=== PATIENT | female | born 1940 | race Hispanic/Latino ===

== ENCOUNTER 2016-05-05 06:28 | Inpatient (IN) | payer MEDICARE ==
[~2016-05-05 06:28] MED LIST: ANCEF/STERILE WATER 2 GM/20 ML IV NR
[2016-05-05] MEDS ORDERED: VERSED IV NR (07:00)
[2016-05-05] MEDS ORDERED: NEURONTIN PO NR (07:00)
[2016-05-05] MEDS ORDERED: PEPCID PO NR (07:00)
[2016-05-05] MEDS ORDERED: NACL 0.9% 1000 ML 1,000 ML IV SCH ×2 (07:00→12:00)
[2016-05-05] MEDS ORDERED: SUBLIMAZE ONE (07:14)
[2016-05-05] MEDS ORDERED: DIPRIVAN 10 MG/ML IV ONE ×3 (07:15→10:22)
[2016-05-05] MEDS ORDERED: ZEMURON IV ONE (07:16)
[2016-05-05] MEDS ORDERED: XYLOCAINE MPF 2% ONE (07:17)
[2016-05-05] MEDS ORDERED: CLONIDINE 1,000 MCG/10 ML VIAL EP ONE (08:00)
[2016-05-05] MEDS ORDERED: MARCAINE-EPI/PF 0.5%-1:200,000 INFILTRATI ONE (08:00)
[2016-05-05] MEDS ORDERED: DECADRON ONE ×2 (08:06→09:45)
[2016-05-05] MEDS ORDERED: ZOFRAN IV PRN ×2 (08:58→11:53)
[2016-05-05] MEDS ORDERED: DILAUDID IV PRN (08:58)
--- NOTE | 2016-05-05 08:58 | Anesthesia Consultation ---
Anesthesia Consult and Med Hx Date of service: 05/05/16 - Airway Anesthetic Teeth Evaluation: Good ROM Head & Neck: Inadequate (s/p ACDF) Mental/Hyoid Distance: Adequate Mallampati Class: Class III Intubation Access Assessment: Possibly Difficult - Pulmonary Exam CTA: Yes - Cardiac Exam Cardiac Exam: RRR - Pre-Operative Health Status ASA Pre-Surgery Classification: ASA3 Proposed Anesthetic Plan: Epidural Nerve Block: Adductor - Pre-Anesthesia Comment Pre-Anesthesia Comments: cardiac w/u in chart. Negative perfusion scan, EF 70%. Cardiac clearance. - Pulmonary Hx Smoking: No Hx Sleep Apnea: No (NICHOLE PRE SCREEN HIGH RISK.) - Cardiovascular System Hx Hypertension: Yes (X 10 YRS) Hx Coronary Artery Disease: Yes Hx Valvular Heart Disease: Yes (MVP) Hx Heart Murmur: Yes - Central Nervous System Hx Back Pain: Yes Hx Psychiatric Problems: Yes - Gastrointestinal Hx Gastroesophageal Reflux Disease: Yes (controlled) - Other Systems Hx Cancer: No - Additional Comments Anesthesia Medical History Comments: NAC
--- NOTE | 2016-05-05 08:58 | Anesthesia Day of Surgery ---
Anesthesia Day of Surgery - Day of Surgery Patient Examined: Yes Patient H&P Reviewed: Yes Patient is NPO: Yes Cardiac Clearance: Yes
[2016-05-05] MEDS ORDERED: TRANEXAMIC ACID IV ONE (09:34)
[2016-05-05] MEDS ORDERED: NACL 0.9% IV ONE (09:34)
[2016-05-05] MEDS ORDERED: NACL 0.9% IR ONE ×2 (09:34→10:00)
[2016-05-05] MEDS ORDERED: ZOFRAN ONE (09:45)
[2016-05-05] MEDS ORDERED: TRANEXAMIC ACID 1,000 MG in NACL 0.9% 100 ML IV NR (10:00)
[2016-05-05] MEDS ORDERED: MARCAINE-EPI 0.5%-1:200,000 INFILTRATI ONE (10:00)
[2016-05-05] MEDS ORDERED: NEOSPORIN GU IR ONE (10:00)
[2016-05-05] MEDS ORDERED: NACL 0.9% 1000 ML 1,000 ML ONE (10:19)
[2016-05-05] MEDS ORDERED: NACL 0.9% 100 ML ONE (11:02)
[2016-05-05] MEDS ORDERED: NEO SYNEPHRINE ONE (11:02)
--- NOTE | 2016-05-05 11:49 | Admit Criteria Form ---
Admission Criteria Documentation: AMBULATORY SURGERY EXCEPTION CRITERIA Ambulatory Surgery Exception Criteria ( Place 'X' for any and all applicable criteria): Surgery or procedure performed on ambulatory basis may require inpatient stay for[A] ANY ONE of the following(1)(2)(3)(4)(5)(6)(7)(8)(9): [X] I. A preoperative situation, condition, or finding that warrants inpatient stay as indicated by ANY ONE of the following: [X] a) Inpatient care needed because of severity of a disease or condition rather than the surgery (eg, severe cardiac or respiratory disease, severe infection) (15) (16 ) (17) (18) [] b) Emergent procedure (eg, angioplasty for acute ischemia)(19) [] c) Complex surgical approach or situation as indicated by ANY ONE of the following(3): [] i) Open approach needed instead of usual endoscopic, transcatheter, or other less invasive procedure [] ii) Difficult approach because of previous operation [] iii) Airway monitoring required after open neck procedures(20)(21) [] iv) Large mass requiring unusually extensive dissection [] v) Additional complicating feature requiring inpatient care (eg, drain management)(22(23): [X] d) Major surgery in a pt with high anesthetic risk as indicated by ANY ONE of the following (2)(3)(5)(7)(8): [X] i) ASA risk class III or higher (severe systemic disease impairing function) [D] [] ii) Advanced age (eg, older than 85 years)(14)(24) [] iii) Symptomatic heart failure(25) [] iv) Symptomatic asthma or COPD(8)(21) [] v) Morbid obesity with hemodynamic or respiratory problems(20)( 21)(26)(27) [] vi) Obstructive sleep apnea(20)(21) [] vii) Former premature infants who are younger than 60 weeks [] viii) High risk for severe postoperative abnormalities (eg, severe postoperative hypocalcemia after parathyroidectomy for severe hyperparathyroidism)(27)( 28) [] ix) Unstable angina(25) [] e) Drug-related risk requiring inpatient stay as indicated by ANY ONE of the following(5)(10)(14)(32)(33) [] i) Procedure requires discontinuing drugs or other therapy (eg , antiarrhythmic medication, antiseizure medication), which necessitates inpatient observation or treatment.(18)(31) [] ii) Major surgery and high risk drug use as indicated by ANY ONE of the following: [] 1) Active abuse of cocaine or similar drug [] 2) Monoamine oxidase inhibitor use [] 3) Other drug identified as posing risk [] f) Inadequate outpatient care situation as indicated by ANY ONE of the following(5)(10)(14)(32)(33) [] i) Patient lives remote from medical facility and procedure has urgent complication potential, and temporary nearby residence cannot be arranged [] ii) Patient will have postprocedure incapacitation and inadequate assistance at home, or alternative level of care cannot be arranged. [] iii) Patient will have long general anesthesia or procedure side effect resolution time, and competent person to stay with patient on first postoperative night at home or alternative level of care cannot be arranged. []iv) Other inadequate outpatient situation that cannot be handled by other means [] II. A perioperative event, condition, or finding that warrants inpatient stay as indicated by ANY ONE of the following (1)(2)(3): [] a) Inadequate physiologic recovery: cardiovascular, respiratory, or hemodynamic status not normal or near preoperative baseline(18) [] b) Hemodynamic instability [] c) Patient not alert with near normal or baseline mental status [] d) Temperature not normal or as expected and not appropriate for outpatient treatment of condition [] e) Ambulatory or appropriate activity level status not yet achieved post procedure [E](34)(35)(36) [] f) Operative site not appropriate (eg, unexpected or excessive drainage or bleeding) [] g) Postoperative effects not resolved or adequately managed (eg, significant pain or vomiting not appropriate for outpatient or next level of care)(10)(12) [] h) Complicating features requiring inpatient care as indicated by ANY ONE of the following(37): [] i) Severe complications of procedure (eg, bowel injury, airway compromise, vascular injury,severe hemorrhage) [] ii) Extensive (eg, dissection far beyond usual scope of procedure ) or prolonged (eg, 120 minutes beyond usual) surgery needed requiring inpatient postoperative care [] iii) Conversion to an open or complex procedure that requires inpatient care (eg, open vs laparoscopic cholecystectomy, abdominal vs vaginal hysterectomy)(38) [] iv) Comorbid condition or test result identified during or post procedure that requires inpatient care (7) [] v) Malignant hyperthermia(30) [] vi) Other complicating feature requiring inpatient care(22)(23) Inpatient stay may be needed until ALL of the following are present (1)(2)(3)(4) (5)(6)(10)(14)(33)(40): []a) Physiologic recovery: cardiovascular, respiratory, and hemodynamic status normal or near preoperative baseline []b) Hemodynamic stability []c) Patient alert, with near normal or baseline mental status []d) Temperature appropriate: patient afebrile or temperature appropriate for outpt treatment of condition []e) Activity level appropriate: ambulatory or appropriate activity level post procedure []f) Operative site appropriate as indicated by ALL of the following: []i) Site dry or with expected drainage []ii) Any blood noted is as expected for procedure. []g) Postoperative effects resolved or managed as indicated by ALL of the following: []i) Pain management appropriate for outpatient (or next level of) care(10) []ii) Minimal nausea and vomiting: if present, successfully treated with oral medication(12) []iii) Headache, dizziness, or drowsiness (if present) are mild. []h) Voiding status acceptable as indicated by ANY ONE of the following: []i) Voiding spontaneously []ii) No voiding but instructions given for follow-up in 6 to 8 hours []iii) Urinary catheter in place, and instructions given for follow-up []i) Complicating features requiring inpatient care manageable at a lower level of care(37) []j) Comorbid conditions manageable at a lower level of care(37) The original [facility] content created by [email or web address] has been revised. The portions of the content which have been revised are identified through the use of italic text or in bold, and [facility] has neither reviewed nor approved the modified material. All other unmodified content is copyright [facility]. Please see references footnoted in the original [facility] edition 2016 Admission Criteria Met: Yes
[2016-05-05] MEDS ORDERED: SODIUM CHLORIDE FLUSH SYRINGE 10 ML IV PRN (11:53)
--- NOTE | 2016-05-05 12:14 | Operative Report ---
PREOPERATIVE DIAGNOSIS: Left knee severe degenerative joint disease. POSTOPERATIVE DIAGNOSIS: Left knee severe degenerative joint disease. PROCEDURES PERFORMED: 1. Left total knee replacement utilizing [employer] system - size 4 noncemented femur. 2. Size 4 noncemented tibia. 3. A 9 mm polyethylene insert. 4. A 31 mm cemented patella. 5. An 8-degree distal femoral resection with 7-degree valgus cut. SURGEON: Rolando Robbins M.D. DISTRICT MANAGER IN TRAINING: Keanu Valladares CSA ANESTHESIA: Spinal with epidural plus adductor block. ESTIMATED BLOOD LOSS: Minimal. COMPLICATIONS: None. DESCRIPTION OF PROCEDURE: The patient underwent successful induction of anesthesia given the lower extremity was prepped and draped in the usual fashion. Tourniquet inflated after exsanguination. Antibiotics and tranexamic acid were pre-administered. The incision was locally anesthetized. A standard midline incision utilizing medial trivector arthrotomy. Appropriate exposure of the joint carried out. Patella resected in the standard fashion. Tibiofemoral joint exposed. Intramedullary jay introduced in the femur with sequential suctioning. Standard cuts made on the femur. Excellent cuts were made. The ACL resected. Proximal tibia exposed. A 10 mm resected off the high side laterally. Appropriate gaps balanced. Excellent fit and fixation for the size 9 mm implant. The wound was thoroughly irrigated, good quality of bone. The components were placed. She had full range of motion, excellent stability, flexion and extension. Wounds once again irrigated, tourniquet released. No significant bleeding encountered. Arthrotomy reapproximated with Ethibond sutures followed by 0 and 2-0 Vicryl, subcutaneous tissue and Monocryl for the skin, and an island dressing applied, taken to recovery room in satisfactory condition having tolerated the procedure well. JOB# [id number] RDP/NTS
--- NOTE | 2016-05-05 12:15 | Post Anesthesia Evaluation ---
- Post Anesthesia Evaluation Patient Participated: Yes Airway Patent: Yes Stable Respiratory Function: Yes Nausea/Vomiting: No Temp > 96.8F: Yes Pain Manageable: Yes Adequeate Hydration: Yes Anesthesia Complications: No Block Receding Appropriately: Yes Patient on Ventilator: No
[2016-05-05] MEDS ORDERED: ANCEF/NS 1 GM/50 ML 1 GM/50 ML BAG IV SCH (17:00)
[2016-05-05] MEDS ORDERED: REGLAN IV PRN (17:29)
[2016-05-06] MEDS: PERCOCET 5/325 PO PRN ×4 (02:10→22:06)
[2016-05-06] MEDS: ASPIRIN PO SCH ×2 (09:13→22:03)
--- NOTE | 2016-05-06 16:41 | Consultation ---
History of Present Illness - Reason for Consult Consult date: 05/06/16 Medical management Requesting physician: GUSTAVO YANG - History of Present Illness S/p L TKA Past History Past Medical History: hypertension, hyperlipidemia, other (Depression) Social history: lives with family Family history: hypertension Medications and Allergies Allergies Allergy/AdvReac Type Severity Reaction Status Date / Time codeine Allergy Vomiting Verified 04/26/16 13:21 Home Medications Medication Instructions Recorded Confirmed Last Taken Type Aspirin [Adult Low Dose Aspirin EC] 81 mg PO DAILY 04/26/16 05/05/16 04/28/16 History AtorvaSTATin [Lipitor] 40 mg PO DAILY 04/26/16 05/05/16 05/04/16 History Lisinopril [Zestril] 20 mg PO BID 04/26/16 05/05/16 05/05/16 History Omeprazole Magnesium [PriLOSEC Otc] 20 mg PO QDAY 04/26/16 05/05/16 05/05/16 History Sertraline [Zoloft] 50 mg PO DAILY 04/26/16 05/05/16 05/04/16 History Active Meds: Active Medications Aspirin (Aspirin) 325 mg PO BID [facility] Last Admin: 05/06/16 09:13 Dose: 325 mg Aspirin (Halfprin Ec) 81 mg PO DAILY [facility] Atorvastatin Calcium (Lipitor) 40 mg PO DAILY [facility] Celecoxib (Celebrex) 200 mg PO BID [facility] Last Admin: 05/06/16 09:13 Dose: 200 mg Sodium Chloride (Nacl 0.9% 1000 Ml) 1,000 mls @ 100 mls/hr IV DIRECT [facility] Last Admin: 05/05/16 22:39 Dose: 100 mls/hr Lisinopril (Zestril) 20 mg PO BID [facility] Metoclopramide HCl (Reglan) 10 mg IV ONCE PRN PRN Reason: Nausea And Vomiting Last Admin: 05/05/16 17:42 Dose: 10 mg Miscellaneous Medication (Omeprazole Magnesium [Prilosec Otc]) 20 mg PO QDAY [facility] Ondansetron HCl (Zofran) 4 mg IV Q8H PRN PRN Reason: Nausea And Vomiting Last Admin: 05/05/16 16:39 Dose: 4 mg Oxycodone/Acetaminophen (Percocet 5/325) 2 tab PO Q6H PRN PRN Reason: Pain, Moderate (4-6) Last Admin: 05/06/16 09:13 Dose: 2 tab Sertraline HCl (Zoloft) 50 mg PO DAILY [facility] Sodium Chloride (Sodium Chloride Flush Syringe 10 Ml) 10 ml IV PRN PRN PRN Reason: LINE FLUSH Review of Systems All systems: negative Exam - Constitutional Vitals: Temp Pulse Resp BP Pulse Ox 97.7 F 67 20 114/63 98 05/06/16 07:36 05/06/16 07:36 05/06/16 10:00 05/06/16 07:36 05/06/16 10:00 General appearance: Present: no acute distress, well-nourished - EENT Eyes: Present: PERRL ENT: hearing intact, clear oral mucosa - Neck Neck: Present: supple, normal ROM - Respiratory Respiratory effort: normal Respiratory: bilateral: CTA - Cardiovascular Heart Sounds: Present: S1 & S2. Absent: rub, click - Extremities Extremities: pulses symmetrical, No edema Peripheral Pulses: within normal limits - Abdominal General gastrointestinal: Present: soft, non-tender, non-distended, normal bowel sounds Female genitourinary: Present: normal - Integumentary Integumentary: Present: clear, warm, dry - Musculoskeletal Musculoskeletal: gait normal, strength equal bilaterally - Psychiatric Psychiatric: appropriate mood/affect, intact judgment & insight - Neurologic Neurologic: CNII-XII intact, moves all extremities Assessment and Plan - Patient Problems (1) Hx of total knee arthroplasty Current Visit: Yes Status: Acute Qualifiers: Laterality: left Qualified Code(s): Z96.652 - Presence of left artificial knee joint Plan to address problem: Post op doing well (2) HTN (hypertension) Current Visit: Yes Status: Chronic Qualifiers: Hypertension type: essential hypertension Qualified Code(s): I10 - Essential (primary) hypertension Plan to address problem: Cont antihypertensives (3) HLD (hyperlipidemia) Current Visit: Yes Status: Chronic Qualifiers: Hyperlipidemia type: mixed hyperlipidemia Qualified Code(s): E78.2 - Mixed hyperlipidemia Plan to address problem: Cont atorvastain 40 mg po qd (4) Depression Current Visit: Yes Status: Chronic Qualifiers: Depression Type: reactive depression Major depression recurrence: M Active/Remission status: A Major depression episode severity: M Psychotic features: P Trimester: T Qualified Code(s): F32.9 - Major depressive disorder, single episode, unspecified Plan to address problem: Cont Sertraline (5) DVT prophylaxis Current Visit: Yes Status: Acute
[2016-05-06] MEDS ORDERED: NON-FORMULARY (Omeprazole Magnesium [Prilosec Otc] 20 MG) PO SCH (16:45)
--- NOTE | 2016-05-06 16:46 | Discharge Summary ---
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 Consult to Physician [CONS] Routine Consulting Provider: SABINA KULKARNI Reason For Exam: primary care 05/05/16 11:56 Physical Therapy Evaluation and Treat [CONS] Routine Comment: avoid flexion, add, int rotation of operative hip Reason For Exam: total knee Primary care physician: MIKI CALLAHAN Hospitalization Hospital course: S/p L TKA-doing well.No complications.Underwent PT well.Minimal pain Disposition: DISCHARGED TO HOME OR SELFCARE Time spent for discharge: 20 min - Discharge Diagnoses (1) Hx of total knee arthroplasty Status: Acute Qualifiers: Laterality: left Qualified Code(s): Z96.652 - Presence of left artificial knee joint (2) HTN (hypertension) Status: Chronic Qualifiers: Hypertension type: essential hypertension Qualified Code(s): I10 - Essential (primary) hypertension (3) HLD (hyperlipidemia) Status: Chronic Qualifiers: Hyperlipidemia type: mixed hyperlipidemia Qualified Code(s): E78.2 - Mixed hyperlipidemia (4) Depression Status: Chronic Qualifiers: Depression Type: reactive depression Major depression recurrence: M Active/Remission status: A Major depression episode severity: M Psychotic features: P Trimester: T Qualified Code(s): F32.9 - Major depressive disorder, single episode, unspecified (5) DVT prophylaxis Status: Acute Core Measure Documentation - Palliative Care Palliative Care/ Comfort Measures: Not Applicable - Core Measures Any of the following diagnoses?: none Exam - Constitutional Vitals: Temp Pulse Resp BP Pulse Ox 98.2 F 74 18 142/62 98 05/06/16 16:00 05/06/16 16:00 05/06/16 16:00 05/06/16 16:00 05/06/16 16:00 General appearance: Present: no acute distress, well-nourished - EENT Eyes: Present: PERRL ENT: hearing intact, clear oral mucosa - Neck Neck: Present: supple, normal ROM - Respiratory Respiratory effort: normal Respiratory: bilateral: CTA - Cardiovascular Heart Sounds: Present: S1 & S2. Absent: rub, click - Extremities Extremities: pulses symmetrical, No edema Peripheral Pulses: within normal limits - Abdominal General gastrointestinal: Present: soft, non-tender, non-distended, normal bowel sounds Female genitourinary: Present: normal - Integumentary Integumentary: Present: clear, warm, dry - Musculoskeletal Musculoskeletal: gait normal, strength equal bilaterally - Psychiatric Psychiatric: appropriate mood/affect, intact judgment & insight - Neurologic Neurologic: CNII-XII intact, moves all extremities Plan Weight Bearing Status: Weight Bear as Tolerated Diet: low salt Follow up with: MIKI CALLAHAN MD [Primary Care Provider] - 7 Days
--- NOTE | 2016-05-06 17:18 | Progress Note ---
Subjective Date of service: 05/06/16 Interval history: 1st POD after total knee arthroplasty Patient is in the bed, relatively comfortable. Pain is mostly controlled with pain meds. No nausea or vomiting. Ambulated with physical therapist. No residual neurological deficit. No anesthesia complications Objective - Constitutional Vitals: Vital Signs - 12hr 05/06/16 05/06/16 05/06/16 07:36 09:13 10:00 Temperature 97.7 F Pulse Rate [ 67 From Monitor] Respiratory 18 20 Rate Respiratory 20 Rate [Left Knee ] Blood Pressure 114/63 [Left Arm] O2 Sat by Pulse 97 98 Oximetry 05/06/16 05/06/16 05/06/16 10:13 16:00 16:54 Temperature 98.2 F Pulse Rate [ 74 From Monitor] Respiratory 18 18 20 Rate Respiratory Rate [Left Knee ] Blood Pressure 142/62 [Left Arm] O2 Sat by Pulse 98 Oximetry
[2016-05-06] MEDS: PROTONIX PO SCH (17:24)
[2016-05-06] MEDS: ZESTRIL PO SCH (22:03)
[2016-05-07] MEDS: PERCOCET 5/325 PO PRN ×2 (03:30→09:45)
[2016-05-07] MEDS: ASPIRIN PO SCH (09:05)
[2016-05-07] MEDS: PROTONIX PO SCH (09:10)
[2016-05-07] MEDS: ZESTRIL PO SCH (09:11)
[2016-05-07] MEDS ORDERED: ZOLOFT PO SCH (10:00)
[2016-05-07] MEDS ORDERED: HALFPRIN EC PO SCH (10:00)
[2016-05-07 11:37] VITALS: BP 153/89
== END 2016-05-07 13:25 | disposition home or self-care (01) | DRG 470 ==
LOC: 3A 06:28 → 2B-SURG 19:16
PROVIDERS: ADMIT Orthopaedic Surgery; ATTEND Orthopaedic Surgery
PROC: 3E0T3CZ (ICD-10-PCS; principal; 2016-05-05)
PROC: 0SRD0J9 Replacement of Left Knee Joint with Synthetic Substitute, Cemented, Open Approach (ICD-10-PCS; principal; 2016-05-05)
DX: M17.11 Unilateral primary osteoarthritis, right knee (principal); I10 Essential (primary) hypertension; I25.10 Atherosclerotic heart disease of native coronary artery without angina pectoris; K21.9 Gastro-esophageal reflux disease without esophagitis; E78.5 Hyperlipidemia, unspecified; F32.9 Major depressive disorder, single episode, unspecified; Z82.49 Family history of ischemic heart disease and other diseases of the circulatory system; Z88.6 Allergy status to analgesic agent; Z79.82 Long term (current) use of aspirin
CPT/HCPCS: 64450; 88304; 88305; 88311; A4217; A9270-GY; C1776; J0690; J0735; J1100; J1170; J2250; J2370; J2405; J2704; J2765; J3010; J7030